=== PATIENT | male | born 1995 | race Caucasian/White ===

== ENCOUNTER 2016-07-15 21:40 | Emergency (ER) | payer OTHER ==
[2016-07-15 21:51] VITALS: BP 173/98; PULSE 99; TEMP 99.5; BMI 35.9
--- NOTE | 2016-07-15 22:03 | PDOC ---
History of Present Illness - General Chief Complaint: Laceration Stated Complaint: LH 1ST FINGER LAC History Source: Patient Exam Limitations: No Limitations - History of Present Illness Initial Comments: 07/15/16 21:58 20 Y M T HANDED [employer] CUT LT THUMB W/ SAW. NO OTHER INJURY. IN ED IN NAD. VACCINES UTD Past History - Past Medical History Allergies/Adverse Reactions: Allergies Allergy/AdvReac Type Severity Reaction Status Date / Time No Known Allergies Allergy Unverified 12/23/14 10:19 Home Medications: Ambulatory Orders NK [No Known Home Medication] 07/15/16 Other medical history: DENIES - Psycho/Social/Smoking Cessation Hx Anxiety: No Suicidal Ideation: No Smoking History: Never smoked Review of Systems - Review of Systems Able to Perform ROS?: Yes Is the patient limited Syrian proficient: No Constitutional: No: Symptoms Reported HEENTM: No: Symptoms Reported Musculoskeletal: No: Symptoms Reported Integumentary: Yes: See HPI. No: Symptoms Reported All Other Systems: Reviewed and Negative *Physical Exam - Vital Signs Last Vital Signs Temp Pulse Resp BP Pulse Ox 99.5 F 99 H 18 173/98 100 07/15/16 21:40 07/15/16 21:40 07/15/16 21:40 07/15/16 21:40 07/15/16 21:40 - Physical Exam General Appearance: Yes: Nourished, Appropriately Dressed. No: Apparent Distress Respiratory/Chest: negative: Respiratory Distress Cardiovascular: positive: Regular Rhythm, Regular Rate Musculoskeletal: positive: Normal Inspection Extremity: positive: Normal Capillary Refill, Normal Inspection, Normal Range of Motion, Other (1/2 IN LAC W/ TISSUE LOSS. SUPERFICIAQL. NO ACTIVE BLEED. NTV INTACT) Integumentary: positive: Swelling Neurologic: positive: Fully Oriented Progress Note - Progress Note Progress Note: WOUND CLEANSED W/ TAP WTER AND PEROXYDE. XEROFORM APPLIED *DC/Admit/Observation/Transfer Diagnosis at time of Disposition: Laceration of thumb Qualifiers: Encounter type: initial encounter Laterality: left Qualified Code(s): S61.012A - Laceration without foreign body of left thumb without damage to nail, initial encounter - Discharge Dispostion Disposition: HOME Condition at time of disposition: Good - Referrals Referrals: Parag Dawkins MD [Primary Care Provider] - 3 days - Patient Instructions Additional Instructions: KEEP WOUND DRY FOR 48- 72 HOURS. AFTER, REGULAR SOAP AND WATER DO NOT REMOVE DRESSING FOR 48-72 HOURS TYLENOL IF PAIN RETURN IF REDNESS, SWELLING, PUS, SEVERE PAIN SEE YOUR DOCTOR IN 72 HOURS
== END 2016-07-15 22:16 | disposition home or self-care (01) ==
LOC: FER 21:40
DX: S61.012A Laceration without foreign body of left thumb without damage to nail, initial encounter (principal); W31.2XXA Contact with powered woodworking and forming machines, initial encounter; Y93.89 Activity, other specified; Y92.9 Unspecified place or not applicable; Y99.0 Civilian activity done for income or pay
CPT/HCPCS: 99282-25